=== PATIENT | female | born 1960 | race Caucasian/White ===

== ENCOUNTER 2024-01-11 16:02 | Inpatient (IN) | payer OTHER ==
[2024-01-11] MEDS ORDERED: METOCLOPRAMIDE HCL INJECTION 10 MG/2 ML VIAL ONE (17:10)
[2024-01-11] MEDS ORDERED: ACETAMINOPHEN INJECTION 100 ML IVPB ONE (17:11)
[2024-01-11] MEDS ORDERED: FAMOTIDINE 20 MG/50 ML IVPB 20 MG/50 ML MG IVPB ONE (17:11)
[2024-01-11] MEDS: LACTATED RINGERS SOLUTION 1000 ML INFUS.BAG IV ONE (17:45)
[2024-01-11] MEDS: ACETAMINOPHEN 1000 MG/100 ML BAG IVPB ONE (17:45)
[2024-01-11] MEDS: FAMOTIDINE 20 MG/50 ML IVPB 20 MG/50 ML MG IVPB ONE (17:45)
[2024-01-11] MEDS: ONDANSETRON 4 MG/2 ML VIAL IVPUSH ONE (17:45)
[2024-01-11] MEDS: METOCLOPRAMIDE HCL INJECTION 10 MG/2 ML VIAL IVPUSH ONE (17:45)
[2024-01-11] MEDS ORDERED: ONDANSETRON 4 MG/2 ML VIAL ONE (17:50)
[2024-01-11 17:53] LABS: BASO % 0.4 % (0-2.0); EOS % 1.1 % (0-4.5); HEMATOCRIT 45.6 % (32.4-45.2); HEMOGLOBIN 15.3 GM/dL (10.7-15.3); LYMPH % 33.7 % (8-40); MCH 30.5 pg (25.7-33.7); MCHC 33.5 g/dl (32.0-36.0); MEAN PLT VOLUME 9.4 fl (7.5-11.1); MONO % 7.4 % (3.8-10.2); NEUT % 57.4 % (42.8-82.8); PLATELET COUNT 267 10^3/uL (134-434); RBC 5.01 M/mm3 (3.60-5.2); RDW 13.4 % (11.6-15.6); WHITE BLOOD COUNT 10.4 K/mm3 (4.0-10.0)
[2024-01-11 17:54] LABS: EPI CELLS 19 /uL (0-25.1); HYALINE CASTS 1 /uL (0-3.1); PH,URINE 7.5 (5.0-8.0); URINE APPEARANCE CLEAR; URINE BACTERIA 130 /uL (0-1359); URINE BILIRUBIN NEGATIVE (NEGATIVE); URINE COLOR YELLOW; URINE GLUCOSE (UA) NEGATIVE (NEGATIVE); URINE KETONE NEGATIVE (NEGATIVE); URINE LEUK ESTERASE TRACE (NEGATIVE); URINE NITRITE NEGATIVE (NEGATIVE); URINE PROTEIN NEGATIVE (NEGATIVE); URINE RBC 7 /uL (0-23.9); URINE UROBILINOGEN 0.2 mg/dL (0.2-1.0); URINE WBC 14 /uL (0-25.8)
[2024-01-11 17:59] LABS: PROTHROMBIN TIME (PATIENT) 11.3 SEC (9.7-13.0)
[2024-01-11 18:13] LABS: ALBUMIN 3.7 g/dl (3.4-5.0); CALCIUM 9.7 mg/dL (8.5-10.1)
[2024-01-11 18:14] LABS: BLOOD UREA NITROGEN 6.8 mg/dL (7-18); MAGNESIUM 2.4 mg/dL (1.8-2.4)
[2024-01-11 18:16] LABS: CREATININE 0.6 mg/dL (0.55-1.3)
[2024-01-11 18:18] LABS: BILIRUBIN,TOTAL 0.5 mg/dL (0.2-1)
[2024-01-11] MEDS ORDERED: MECLIZINE HCL 25 MG TABLET (FP) ONE (20:20)
[2024-01-11] MEDS: MECLIZINE HCL 25 MG TABLET (FP) PO ONE (20:30)
[2024-01-11] MEDS ORDERED: MECLIZINE HCL 25 MG TABLET (FP) PO PRN (23:13)
[2024-01-11] MEDS ORDERED: ONDANSETRON 4 MG/2 ML VIAL IVPUSH PRN (23:13)
[2024-01-12] MEDS: MECLIZINE HCL 25 MG TABLET (FP) PO SCH (01:49)
[2024-01-12 06:17] LABS: BASO % 0.6 % (0-2.0); EOS % 2.2 % (0-4.5); HEMATOCRIT 40.2 % (32.4-45.2); HEMOGLOBIN 13.6 GM/dL (10.7-15.3); LYMPH % 41.7 % (8-40); MCH 30.5 pg (25.7-33.7); MCHC 33.8 g/dl (32.0-36.0); MEAN CELL VOLUME 90.3 fl (80-96); MEAN PLT VOLUME 9.3 fl (7.5-11.1); MONO % 8.7 % (3.8-10.2); NEUT % 46.8 % (42.8-82.8); PLATELET COUNT 233 10^3/uL (134-434); RBC 4.45 M/mm3 (3.60-5.2); RDW 13.5 % (11.6-15.6); WHITE BLOOD COUNT 8.6 K/mm3 (4.0-10.0)
[2024-01-12 06:34] LABS: POTASSIUM 3.9 mmol/L (3.5-5.1)
[2024-01-12 06:42] LABS: BLOOD UREA NITROGEN 4.8 mg/dL (7-18); MAGNESIUM 2.3 mg/dL (1.8-2.4)
[2024-01-12 06:45] LABS: BILIRUBIN,TOTAL 0.6 mg/dL (0.2-1); CREATININE 0.4 mg/dL (0.55-1.3); PHOSPHOROUS 4.6 mg/dL (2.5-4.9); TOT PROT 6.6 g/dl (6.4-8.2)
[2024-01-12] MEDS ORDERED: INSULIN ASPART SLIDING SCALE (NOVOLOG) 1 VIAL SQ SCH (07:00)
[2024-01-12] MEDS ORDERED: MECLIZINE HCL 25 MG TABLET (FP) ONE ×2 (09:28→15:03)
[2024-01-12] MEDS ORDERED: INSULIN (NOVOLOG) ASPART 100 UNITS/ML 10ML VIAL ONE (09:28)
[2024-01-12] MEDS: INSULIN ASPART SLIDING SCALE (NOVOLOG) 1 VIAL SQ SCH (18:07)
[2024-01-13 08:15] LABS: BASO % 0.4 % (0-2.0); HEMATOCRIT 40.9 % (32.4-45.2); HEMOGLOBIN 13.7 GM/dL (10.7-15.3); LYMPH % 44.1 % (8-40); MCH 30.7 pg (25.7-33.7); MCHC 33.5 g/dl (32.0-36.0); MEAN CELL VOLUME 91.6 fl (80-96); MEAN PLT VOLUME 9.5 fl (7.5-11.1); NEUT % 45.5 % (42.8-82.8); PLATELET COUNT 253 10^3/uL (134-434); RBC 4.47 M/mm3 (3.60-5.2); RDW 13.1 % (11.6-15.6); WHITE BLOOD COUNT 8.8 K/mm3 (4.0-10.0)
[2024-01-13 08:22] LABS: POTASSIUM 3.9 mmol/L (3.5-5.1)
[2024-01-13 08:24] LABS: CALCIUM 8.7 mg/dL (8.5-10.1)
[2024-01-13 08:25] LABS: BLOOD UREA NITROGEN 10.7 mg/dL (7-18)
[2024-01-13 08:28] LABS: CREATININE 0.5 mg/dL (0.55-1.3)
[2024-01-13] MEDS: ACETAMINOPHEN 325 MG TABLET (FP) PO PRN (13:13)
[2024-01-13 13:24] VITALS: BMI 25.0
[2024-01-13 15:25] VITALS: BP 114/64; PULSE 79; RESP 18; TEMP 97.7
== END 2024-01-13 16:01 | disposition home or self-care (01) | DRG 111 ==
LOC: JER 16:02 → JERBED 20:49 → OBSVTOIN 21:14 → J4W 01-12 15:40
PROVIDERS: ADMIT Internal Medicine; ATTEND Nurse Practitioner
DX: R42 Dizziness and giddiness (principal); E11.9 Type 2 diabetes mellitus without complications; G93.89 Other specified disorders of brain; H93.19 Tinnitus, unspecified ear
CPT/HCPCS: 0241U-QW; 36415; 70450-TC; 70496-TC; 70498-TC; 70553-TC; 71045-TC-FY; 80048; 80053; 81003; 82550; 82962; 83036; 83735; 84100; 84484; 85025; 85610; 85730; 87086; 93005; 93010; 97116-GP; 97161-GP; 99285-25; G0378; J0131